=== PATIENT | female | born 1970 | race Caucasian/White ===

== ENCOUNTER 2016-10-04 01:00 | Inpatient (IN) | payer OTHER ==
--- NOTE | ~2016-10-04 | PN ---
Unit #: [id number] #: [id number] Patient: FLASH FERRARO [id number] [facility] [address] [place] [address] [id number] I MR#: [id number] NAME: FLASH FERRARO. ROOM: [facility] Age: 45 Sex: F Admission Date: 10/04/2016 : 1970 Attending Physician: Harmony Browne M.D. Admitting Physician: Harmony Browne M.D. Primary Care Physician: Azra Sims PROGRESS NOTES DATE 10/06/2016 DISCUSSION Ms. Ferraro is a 45-year-old white female, who was seen today and chart was reviewed and the case was discussed with the staff. She has been anxious, withdrawn, and rather seclusive to herself. Meanwhile, she has been cooperative with the treatment recommendations and has been taking the medications and tolerating them fairly well with no reported side effects. MENTAL STATUS EXAMINATION Young white female, who was casually dressed with fair personal hygiene and appears to be in no acute distress or discomfort. She was awake and alert on interaction with impaired orientation. Her mood was anxious and with a congruent affect. She denies any suicidal or homicidal ideation. She denies auditory or visual hallucinations. Her insight and judgment remain slightly impaired. TREATMENT PLAN 1. We will continue on her current treatment protocol. We will monitor her response to the medication and make further adjustments as needed. 2. We will continue to followup. Dictated by... Harmony Browne M.D. IAA/ellie TD: 10/07/2016 12:54 JOB #: [id number] Unit #: [id number] #: [id number] Patient: FLASH FERRARO PROGRESS NOTES Page 1 of 1 X Harmony Browne MD PROGRESS NOTE
--- NOTE | ~2016-10-04 | PN ---
Unit #: [id number] #: [id number] Patient: FLASH FERRARO [id number] [facility] [address] [place] [address] [id number] MR#: [id number] NAME: FLASH FERRARO. ROOM: 75 Age: 45 Sex: F Admission Date: 10/04/2016 : 1970 Attending Physician: Harmony Browne M.D. Admitting Physician: Harmony Browne M.D. Primary Care Physician: Azra Sims NOTES DATE OF SERVICE: 10/07/2016 SUBJECTIVE Ms. Ferraro is a 45-year-old female who was seen today and chart was reviewed, and case was discussed with the staff. She has been anxious, withdrawn, though has not shown any agitation or irritability, and reports doing much better on the depression, and her sister has been trying to get her into a long-term facility in [place] and then she would like to leave by tomorrow. MENTAL STATUS EXAMINATION Middle-aged white female who was casually dressed with fair personal hygiene, appears to be in no acute distress or discomfort. She was awake and alert on interaction with intact orientation. Her mood was anxious with a congruent affect. She denies any suicidal or homicidal ideations and also denies any auditory or visual hallucinations. Her insight and judgment remain slightly impaired. TREATMENT PLAN 1. We will continue on her current medications and treatment protocol. We will monitor her response to medications and make further adjustments as needed. 2. We will continue to follow up. Dictated by... Azra Clark/dayne TD: 10/07/2016 20:42 JOB #: [id number] Unit #: [id number] #: [id number] Patient: FLASH FERRARO DES PROGRESS NOTES Page 1 of 1 X Harmony Browne MD PROGRESS NOTE
--- NOTE | ~2016-10-04 | PA ---
Unit #: [id number] #: [id number] Patient: FLASH FERRARO [id number] [facility] [address] [place] [address] [id number] [id number] MR#: [id number] NAME: FLASH FERRARO. ROOM: P175 Age: 45 Sex: F Admission Date: 10/04/2016 : 1970 Date of Assessment: 10/04/2016 Attending Physician: Harmony Browne M.D. Admitting Physician: Harmony Browne M.D. Primary Care Physician: Cat Hagen M.D. PSYCHIATRIC ASSESSMENT DATE OF SERVICE 10/04/2016. IDENTIFYING DATA Ms. Ferraro is a 45-year-old single white female, who is a resident of [place], [place], and was transferred to us from [facility], where she was brought in on a voluntary basis. CHIEF COMPLAINT "I just want to go to sleep and never wake up." HISTORY OF PRESENT ILLNESS Ms. Ferraro is a 45-year-old white female, who was taken to the emergency room at [facility], where she presented reporting suicidal ideation, "I just want to , I've just lost it, and I was just froze, so I came in for help. My depression medicines are not working, so I am taking double and triple doses and I am taking my sleeping medicines but I'm not sleeping, so I take more of that as well as they are not working and I cannot be suicidal because of my yarsani believes and I think about dying and killing myself all the time and I have thoughts of various ways to kill myself, but I don't because I know I will go to hell or something and I have no one and I am alone and I have no support and I hate living with my mother, it is awful and I hate going to work right now because of changes that are being made, and I am having health issues, having financial problem and I just want to give up and I cannot do this anymore, I just want to , I do not want to live like this anymore, I have felt this way my whole life and I think since I was a teenager." The patient does report increasing depression, anxiety, feelings of hopelessness and helplessness, and suicidal ideation with intent and plan and as such, recommendation for inpatient level of care for safety and stabilization was made and the patient was medically cleared and then transferred to us. SUBSTANCE ABUSE HISTORY The patient denies any alcohol or drug abuse. PAST PSYCHIATRIC HISTORY The patient has had history of inpatient psychiatric hospitalizations at [facility], and review of the medical records indicate that currently she is on combination of psychotropic medication, which she reports that she has been taking more in order to feel better. She still has not been able to show a therapeutic response. Unit #: [id number] #: [id number] Patient: FLASH FERRARO PAST MEDICAL HISTORY Dyslipidemia, hypothyroidism, migraine headaches. ALLERGIES No known medication allergies. PERSONAL AND SOCIAL HISTORY A 45-year-old white female, who reports that she is single, employed, and has been living at home with her mother and has fairly decent social support system. MENTAL STATUS EXAMINATION Middle-aged white female, who was casually dressed with fair personal hygiene, appears to be in no acute distress or discomfort. She was awake and alert on interaction with intact orientation to time, place, and person. Her mood was anxious and depressed with a congruent affect. Her speech was slow and restricted in content. She reports having suicidal ideations, but denies any homicidal ideations, and also denies any auditory or visual hallucinations. Her insight and judgment remain significantly impaired. DIAGNOSTIC IMPRESSION Psychiatric: Major depressive disorder, recurrent, moderate, without psychotic features. Medical: Dyslipidemia, hypothyroidism, migraine headaches. Stressors: Moderate psychosocial stressors. TREATMENT PLAN 1. The patient has presented with history of mood disorder, and has been decompensating with increasing depression, anxiety, feelings of hopelessness and suicidal ideations and will need inpatient hospitalization for safety and stabilization. We will start her back on her home medications. We will adjust the medications and monitor response. 2. Supportive therapy was provided to the patient. 3. Safe, structured, and nourishing environment will be provided. ESTIMATED LENGTH OF STAY 5 to 7 days. ABILITY TO HELP SELF Limited. WILLINGNESS TO HELP SELF The patient appears to be willing to help self. STRENGTHS 1. Communicative. 2. Cooperative. PROBLEMS 1. Chronic dysphoric symptoms. 2. Chronic chemical dependency. 3. Poor social support system. DISCHARGE CRITERIA This will be contingent upon the patient's ability to show resolution of her depression and anxiety and her ability to stay safe to herself, particularly after discharge from the hospital. Unit #: [id number] #: [id number] Patient: FLASH FERRARO Giovanny Dictated by... Azra Clark/dayne TD: 10/05/2016 07:10 JOB #: [id number] PSYCHIATRIC ASSESSMENT Page 1 of 1 X Harmony Browne MD X PSYCHIATRIC ASSESSMENT
--- NOTE | ~2016-10-04 | PN ---
Unit #: [id number] #: [id number] Patient: FLASH FERRARO [id number] [facility] [address] [place] [address] [id number] I MR#: [id number] NAME: FLASH FERRARO. ROOM: [facility] Age: 45 Sex: F Admission Date: 10/04/2016 : 1970 Attending Physician: Harmony Browne M.D. Admitting Physician: Harmony Browne M.D. Primary Care Physician: Azra Sims PROGRESS NOTES DATE October 05, 2016 DISCUSSION Ms. Ferraro is a 45-year-old white female, with a history of mood disorder, who was seen today and chart was reviewed and the case was discussed with the staff. The patient has been anxious, withdrawn, depressed and rather seclusive to herself. Meanwhile, she has been cooperative with the treatment recommendations and she has been taking the medications and tolerating them fairly well with no reported side effects. MENTAL STATUS EXAMINATION Middle-aged white female, who was casually dressed with fair personal hygiene and appears to be in no acute distress or discomfort. She was awake and alert with impaired attention and concentration. Her mood was anxious and depressed with a congruent affect. Her insight and judgment remain slightly impaired. TREATMENT PLAN 1. The patient continues to express a very negative attitude, stating that his place is not going to help her any and I questioned her how her negative attitude is going to make it any better at helping her out of her depression. 2. We will suggest a psychotropic medication and monitor her response. 3. We will continue to followup. Dictated by... Azra Clark/alesha TD: 10/05/2016 11:50 JOB #: [id number] Unit #: [id number] #: [id number] Patient: FLASH FERRARO PROGRESS NOTES Page 1 of 1 X Harmony Browne MD PROGRESS NOTE
--- NOTE | ~2016-10-04 | DS ---
Unit #: [id number] #: [id number] Patient: FLASH FERRARO [id number] [facility] [address] [place] [address] [id number] MR#: [id number] NAME: FLASH FERRARO. ROOM: 75 Age: 45 Sex: F Admission Date: 10/04/2016 : 1970 Discharge Date: Attending Physician: Harmony Browne M.D. Primary Care Physician: Cat Hagen M.D. DISCHARGE SUMMARY IDENTIFYING DATA Ms. Ferraro is a 45-year-old, single, white female, who is a resident of [place], [place], and was transferred to us from [facility] on a voluntary basis. DISCHARGE DIAGNOSES Psychiatric: Major depressive disorder, recurrent, moderate, without psychotic features. Medical: Dyslipidemia, hypothyroidism, migraine headaches. Stressors: Moderate psychosocial stressors. HISTORY OF PRESENT ILLNESS Please see initial psychiatric evaluation for details. PAST PSYCHIATRIC HISTORY Please see initial psychiatric evaluation for details. PAST MEDICAL HISTORY Please see initial psychiatric evaluation for details. HOSPITAL COURSE The patient [facility] and was oriented to the hospital environment. Routine p.r.n. medications were initiated, and she was started back on her home medications and Effexor was maintained, but Wellbutrin was added due to persistent depressive symptoms and Seroquel was also later added as the patient was struggling to achieve improvement in her depressive symptoms. However, she started showing a slow therapeutic response and was able to start coming out of her room and started interacting, socializing with peers, and was showing improvement in her depressive symptoms. When I met with the patient on 10/07/2016, she was quiet and upbeat mood with brighter affect and positive body language and she stated that her family has secured residential placement for her in [place] and she would like to leave tomorrow and was denying any withdrawal symptoms and also denying any suicidal ideations and intent or plan and was not seen to be danger to self or anyone else, and as such, it was decided that she will be discharged home with ongoing continuity of care on an outpatient basis. DISCHARGE MEDICATIONS Synthroid 0.05 mg a day for hypothyroidism, Mobic 15 mg a day for pain, Lipitor 20 mg at bedtime for dyslipidemia, Effexor XR 75 mg b.i.d. for Unit #: [id number] #: [id number] Patient: FLASH FERRARO depression, Wellbutrin XL 150 mg in the morning for depression, and Seroquel 100 mg at bedtime for depression. DISCHARGE CONDITION Stable. PROGNOSIS Fair. Dictated by... Azra Clark/dayne TD: 10/08/2016 06:34 JOB #: [id number] DISCHARGE SUMMARY Page 1 of 1 X Harmony Browne MD X DISCHARGE SUMMARY
--- NOTE | ~2016-10-04 | HP ---
Unit #: [id number] #: [id number] Patient: FLASH BROWER [id number] [place] [address] [id number] MR#: [id number] NAME: FLASH BROWER. ROOM: [facility] Age: 45 Sex: F Admission Date: 10/04/2016 : 1970 Attending Physician: Harmony Browne M.D. Admitting Physician: Harmony Browne M.D. Primary Care Physician: Cat Hagen M.D. HISTORY AND PHYSICAL HISTORY OF PRESENT ILLNESS Flash is a 45 year old admitted to [facility] with depression and verbalizing wanting to hurt herself. PAST MEDICAL HISTORY 1. Hyperlipidemia 2. Hypothyroidism (?) PAST SURGICAL HISTORY T & A ALLERGIES No known drug allergies. SOCIAL HISTORY Smokes greater than one pack per day. Drinks alcohol on occasion, denies illicit drug use. FAMILY HISTORY Medically noncontributory. REVIEW OF SYSTEMS CONSTITUTIONAL: No fever or chills. HEENT: Denies any sore throat, ear pain or runny nose. CARDIOVASCULAR: Denies chest pain, irregular heart rhythm or palpitations. CHEST: Denies shortness of breath or cough. No hemoptysis. GASTROINTESTINAL: Denies nausea, vomiting, diarrhea or chronic constipation. ENDOCRINE: Denies history of increased thirst or urination. No recent significant weight loss or gain. GENITOURINARY: Denies dysuria, frequency, or hematuria. SKIN: Denies any rashes. HEMATOLOGIC: Denies history of increased bleeding or bruising. MUSCULOSKELETAL: Denies any hot, swollen joints. No generalized muscle pain. NEUROLOGIC: Denies problems with vision or speech. No frequent, severe headaches. No numbness, tingling or weakness in any extremities. Denies loss of bladder or bowel control. CURRENT MEDICATIONS 1. Celexa 40 mg q day 2. Mobic 15 mg q day Unit #: [id number] #: [id number] Patient: FLASH BROWER 3. Synthroid 0.05 mg q. day 4. Lipitor 20 mg q day 5. Ambien 10 mg q.h.s. 6. Effexor XR 75 mg b.i.d. 7. Genaced 1 tab q 6 hours p.r.n. 8. Milk of Magnesia p.r.n. 9. Maalox p.r.n. 10. Tylenol p.r.n. 11. Nicotine patch 14 q day PHYSICAL EXAMINATION GENERAL: Alert, well-nourished, in no apparent distress. VITAL SIGNS: Blood pressure 136/80, heart rate 74, respirations 16, temperature 98.6. WEIGHT: 111 pounds. HEIGHT: 5'2". SKIN: Warm and dry without rash or lesion. HEENT: Normocephalic. TMs not viewed. Oral and nasal passages clear. Conjunctivae clear. Pupils equal, round and reactive to light and accommodation. Extraocular movements intact. NECK: Supple without lymphadenopathy or thyromegaly. HEART: Regular rate and rhythm without murmur. LUNGS: Clear. ABDOMEN: Soft, nontender. : Not done. EXTREMITIES: No evidence of cyanosis, clubbing or edema. Moves all extremities without focal deficit. NEUROLOGICAL: Grossly within normal limits. Cranial Nerves: II: Visual berg are intact. III, IV AND : Extraocular movements are intact. Pupils are equal, round and reactive to light. V: Facial sensation is grossly normal. VII: Facial movements and expression are normal. VIII: Auditory acuity grossly intact. IX, X: Uvula is midline. Phonation is normal. XI: Patient shrugs shoulders and turns head normally. XII: Tongue protrudes in the midline. Sensory and Motor Function: Sensory and motor sensation is grossly normal. Motor: moves all extremities well. Coordination: Gait is normal. Deep Tendon Reflexes: Intact. IMPRESSION Psychiatric admission RECOMMENDATIONS PSYCHIATRIC: Per psychiatrist. MEDICAL: I see no contraindications to participating in facility's activities. MEDICAL PROGNOSIS Good. MEDICAL CONDITION Stable. Unit #: [id number] #: [id number] Patient: FLASH BROWER Dictated by... Jenny Overton P.A.-C. for Azra Van/roberto TD: 10/05/2016 01:20 JOB #: [id number] HISTORY AND PHYSICAL Page 1 of 1 X Jenny Overton HISTORY AND PHYSICAL
[2016-10-05 09:45] LABS: BASOPHIL% 0.3 % (0-2.5); EOSINOPHIL# 0.3 X10e3 (0-0.7); EOSINOPHIL% 3.6 % (0.0-7.0); HEMATOCRIT 44.5 % (35.0-45.0); HEMOGLOBIN 14.3 gm/dL (12.0-16.0); LYMPHOCYTE% 20.5 % (17.0-45.0); MEAN CELL VOLUME 92.3 FL (83-96); MEAN CORPUSCULAR HEMOGLOBIN 29.6 PG (28-34); MEAN PLATELET VOLUME 8.7 FL (6.5-11.5); MONOCYTE# 0.7 X10e3 (0-1.0); MONOCYTE% 7.1 % (3.0-12.0); NEUTROPHIL# 6.6 X10e3 (1.5-7.1); NEUTROPHIL% 68.5 % (40-75); PLATELET COUNT 334 X10e3 (140-420); RED BLOOD COUNT 4.82 X10e (3.90-5.30); RED CELL DISTRIBUTION WIDTH 13.3 % (11.0-15.5); WHITE BLOOD COUNT 9.7 X10e3 (4.0-10.5)
[2016-10-05 10:01] LABS: DIFF IND NO
[2016-10-05 10:30] LABS: ALBUMIN SERUM 4.2 g/dL (3.5-5.0); BILIRUBIN,TOTAL 0.5 mg/dL (0.2-2.0); CALCIUM SERUM 9.2 mg/dL (8.4-10.2); CREATININE SERUM 0.8 mg/dL (0.6-1.4); GLOM FILT RATE Estimated 88.5 mL/min (>60); POTASSIUM 3.7 mmol/L (3.5-5.1); PROTEIN TOTAL SERUM 6.8 g/dL (6.0-8.3)
[2016-10-06 12:14] LABS: URINE APPEARANCE CLEAR; URINE BILIRUBIN NEG (NEG); URINE BLOOD NEG (NEG); URINE COLOR YELLOW; URINE GLUCOSE NEG (NEG); URINE KETONE TRACE (NEG); URINE LEUKOCYTE ESTERASE NEG (NEG); URINE NITRATE NEG (NEG); URINE PROTEIN NEG (NEG); URINE SPECIFIC GRAVITY 1.011 (1.003-1.035); URINE UROBILINOGEN 0.2 MG/DL (NEG)
[2016-10-06 13:35] LABS: AMPHETAMINE NEG (NEG); BARBITURATES NEG (NEG); BENZODIAZEPINES POS (NEG); COCAINE NEG (NEG); MARIJUANA NEG (NEG); OPIATES POS (NEG); TRICYCLIC ANTIDEPRESSANTS POS (NEG); U METHADONE NEG (NEG)
== END 2016-10-08 10:30 | DRG 885 ==
LOC: P1E 11:20
PROVIDERS: Psychiatry & Neurology Psychiatry
DX: F33.1 Major depressive disorder, recurrent, moderate (principal); E03.9 Hypothyroidism, unspecified; E78.5 Hyperlipidemia, unspecified; G43.909 Migraine, unspecified, not intractable, without status migrainosus; F41.9 Anxiety disorder, unspecified; F17.210 Nicotine dependence, cigarettes, uncomplicated
CPT/HCPCS: 80053; 80307; 81003; 84703; 85025